=== PATIENT | male | born 1965 | race Caucasian/White ===

== ENCOUNTER → 2017-07-02 | Outpatient (CLI) | payer BC ==
--- NOTE | 2017-07-02 15:19 | PCVCIMAG ---
APPROVED REPORT Study performed: 07/02/2017 13:26:50 EXAM: Comprehensive 2D, Doppler, and color-flow Echocardiogram Patient Location: Echo lab BSA: 1.90 HR: 104 bpmBP: 160/90 mmHg Rhythm: NSR Other Information Study Quality: Good Indications Hypertension, Tachycardia, Family history CAD 2D Dimensions IVSd: 8.46 (7-11mm)LVOT Diam: 19.17 (18-24mm) LVDd: 25.65 mm PWd: 9.48 (7-11mm)Ascending Ao: 29.50 (22-36mm) LVDs: 22.95 (25-40mm) Aortic Root: 31.72 mm Pierson's LVEF: 24.23 % Volumes Left Atrial Volume (Systole) Single Plane 4CH: 18.48 mLSingle Plane 2CH: 22.89 mL LA ESV Index: 22.00 mL/m2 Aortic Valve AoV Peak Eyal.: 1.06 m/s AO Peak Gr.: 4.47 mmHg Mitral Valve E/A Ratio: 0.6 MV Decel. Time: 220.28 ms MV E Max Eyal.: 0.46 m/s MV A Eyal.: 0.75 m/s IVRT: 58.82 ms TDI E/Lateral E': 5.75E/Medial E': 5.11 Medial E' Eyal.: 0.09 m/s Lateral E' Eyal.: 0.08 m/s Pulmonary Valve PV Peak Gr.: 2.75 mmHg Pulmonary Vein P Vein S: 0.76 m/sP Vein A: 0.34 m/s P Vein D: 0.29 m/sP Vein A Dur.: 83.0 msec P Vein S/D Ratio: 2.62 Left Ventricle The left ventricle is normal size. There is normal LV segmental wall motion. There is normal left ventricular wall thickness. Left ventricular systolic function is normal. The left ventricular ejection fraction is within the normal range. LVEF is 55-60%. The left ventricular diastolic function is normal. Right Ventricle The right ventricle is normal size. The right ventricular systolic function is normal. Atria The left atrium size is normal. The right atrium size is normal. Aortic Valve The aortic valve is normal in structure. No aortic regurgitation is present. There is no aortic valvular stenosis. Mitral Valve The mitral valve is normal in structure. There is no mitral valve regurgitation noted. No evidence of mitral valve stenosis. Tricuspid Valve The tricuspid valve is normal in structure. There is no tricuspid valve regurgitation noted. Pulmonic Valve The pulmonary valve is normal in structure. There is no pulmonic valvular regurgitation. Great Vessels The aortic root is normal in size. IVC is normal in size and collapses with >50% inspiration Pericardium There is no pericardial effusion. <Conclusion> The left ventricle is normal size. LVEF is 55-60%. The aortic valve is normal in structure. The mitral valve is normal in structure. The tricuspid valve is normal in structure. The pulmonary valve is normal in structure.
--- NOTE | 2017-07-02 15:23 | PCVCIMAG ---
APPROVED REPORT Exam: Stress Echocardiogram Indication: Hypertension, fAMILY HISTORY CAD, TACHYCARDIA Patient Location: Echo lab Stress Nurse: Renetta Chamorro RN Status: routine Ht: 5 ft 6 in BP: 140/90 mmHg Procedure The patient underwent an Exercise Stress Test using the Dani Protocol. Blood pressure, heart rate, and EKG were monitored. An Echocardiogram was performed by earth science technician in four stages in quad fashion. At peak stress, four selected images were obtained and placed side by side with resting images for comparison. Stress Test Details Stress Test: Exercise stress testing was performed using a Dani protocol. HR Resting HR: 105 bpmMax Heart Rate (APMHR): 167 bpm Max HR Achieved: 160 bpmTarget HR (85% APMHR): 141 bpm % of APMHR: 95 HR response to stress: Normal HR response to stress BP Resting BP: 140/90 mmHg Max BP: 168/90 mmHg ECG Resting ECG: Sinus Rhythm Stress ECG: Sinus Rhythm Clinical Reason for Termination: Maximal effort Exercise duration: 9 min 39 sec Highest Stage Achieved: Stage 3: 3.4 mph at 14% grade. Exercise capacity: 12.00 METs Overall Exercise Capacity for Age: Average Stress ECG Conclusion 1. SUBJECTIVELY NEGATIVE FOR ISCHEMIA 2. ELECTROCARDIOGRAPHICALLY SUGGESTIVE BUT NOT DIAGNOSTIC OF ISCHEMIA 3. ADEQUATE FUNCTIONAL CAPACITY Pre-Stress Echo The resting Echocardiogram showed normal left ventricular contractility with an estimated Ejection Fraction of about 55-60%. Normal wall motion in all segments on baseline images. Post-Stress Echo The stress Echocardiogram showed normal left ventricular contractility with an estimated Ejection Fraction of about 60-65%. Normal augmentation of wall motion in all segments on post stress images. Conclusion Clinical Response: Non-ischemic Exercise Capacity: Average Stress ECG Response: Non-ischemic Stress Echo Images: Non-ischemic 1. LOW RISK PATIENT Other Information Study Quality: Good <Conclusion> 1. LOW RISK PATIENT
== END | disposition home or self-care (01) ==
LOC: PCVCIMAG 13:08
PROVIDERS: ATTEND Internal Medicine
DX: I10 Essential (primary) hypertension (principal); E78.5 Hyperlipidemia, unspecified; E11.9 Type 2 diabetes mellitus without complications; R00.0 Tachycardia, unspecified; Z82.49 Family history of ischemic heart disease and other diseases of the circulatory system; Z79.82 Long term (current) use of aspirin
CPT/HCPCS: 93306; 93351; G0463

== ENCOUNTER → 2018-04-22 | Outpatient (CLI) | payer BC | END | disposition home or self-care (01) | LOC: PCVCIMAG 07:31 | DX: I10 Essential (primary) hypertension (principal) | CPT/HCPCS: 76770; 93975 ==